=== PATIENT | female | born 1975 | race Caucasian/White ===

== ENCOUNTER 2019-06-27 09:48 | Emergency (ER) | payer OTHER, SELFPAY ==
[2019-06-27 09:55] VITALS: BP 100/96; PULSE 85; RESP 14; TEMP 37.1; O2SAT 99
[2019-06-27 10:02] VITALS: BP 121/80; PULSE 79; RESP 18; O2SAT 100
--- NOTE | 2019-06-27 10:08 | DI.RAD.S_ITS ---
PROCEDURE: XR LUMBAR SPINE 2-3V INDICATIONS: Pain TECHNIQUE: 3 views of the lumbar spine were acquired. COMPARISON: None. FINDINGS: Bones: 5 [id number] vertebrae are present. There is normal bony alignment. No vertebral body compression fractures. No suspicious bony lesions. Soft tissues: Overlying bowel gas pattern is normal. No suspicious soft tissue calcifications. Cholecystectomy clips noted. IMPRESSION: No fracture. No acute osseous lesion. If symptoms and/or clinical suspicion for pathology persists, evaluation with MRI may be helpful for further assessment. Dictated by: Ivette Strange MD, PhD on 06/27/2019 at 11:12 Approved by: Ivette Strange MD, PhD on 06/27/2019 at 11:13
--- NOTE | 2019-06-27 10:08 | DI.RAD.S_ITS ---
PROCEDURE: XR THORACIC SPINE 3V INDICATIONS: Pain TECHNIQUE: 3 views of the thoracic spine were acquired. COMPARISON: None. FINDINGS: Bones: Loss of height noted in the T12 vertebral body compatible with fracture indeterminate age. T12 compression fracture results in approximately 25% loss of normal vertebral body height. No retropulsed fragments or kyphosis associated with the T12 compression fracture. No suspicious bony lesions. 12 pairs of ribs are noted, and appear intact where visualized. Mild multilevel degenerative disc changes. Soft tissues: No paravertebral stripe thickening. IMPRESSION: T12 compression fracture indeterminate age. Dictated by: Ivette Strange MD, PhD on 06/27/2019 at 11:13 Approved by: Ivette Strange MD, PhD on 06/27/2019 at 11:14
--- NOTE | 2019-06-27 10:12 | ED_ITS ---
HPI - Back Pain/Injury General Chief Complaint: Back Pain/Injury Stated Complaint: fell on ice, back pain Time Seen by Provider: 06/27/19 10:00 Source: patient Limitations: no limitations History of Present Illness HPI Narrative: Patient is a 44-year-old female who presents with acute back pain after slipping and falling on the ice at work. She did not hit her head or lose consciousness she says she did even. She denies any numbness or tingling in her extremities loss of urine no nausea or vomiting. He complains of pain in her lower back and between her shoulders. She says it hurts every time she twists or turns. She is able to walk. Complaint: back pain Onset (ago): minute(s) Duration: constant Similar Symptoms Previously: No Location: lumbar spine and thoracic spine Severity: moderate Quality: sharp Relieving factors: immobilization Exacerbating factors: movement Related Data Previous Rx's Medication Instructions Recorded cyclobenzaprine 5 mg PO TID PRN #10 tab 06/27/19 hydrocodone-acetaminophen 1 tab PO Q6H PRN #10 tab 06/27/19 Allergies Allergy/AdvReac Type Severity Reaction Status Date / Time No Known Drug Allergies Allergy Verified 06/27/19 09:58 Review of Systems Review of Systems Narrative: GENERAL: Denies chills, fatigue, malaise, fever, sweats, travel HEENT: Denies sinus pain, ear pain, sore throat, difficulty swallowing, neck pain RESPIRATORY: Denies dyspnea, cough, wheezing, hemoptysis, sputum. CARDIOVASCULAR: Denies chest pain, palpitations, orthopnea, edema GASTROINTESTINAL: Denies nausea, vomiting, abdominal pain, diarrhea, constipation, melena. : Denies dysuria, frequency, incontinence, hematuria, urinary retention, flank pain. MUSCULOSKELETAL: see HPI SKIN: No rash, no erythema, no pruritus NEUROLOGIC: Denies weakness, dizziness, headache, numbness, change in speech, confusion PSYCHIATRIC: No concerning psychosocial issues. 12 point review of systems is negative except for those stated above and HPI Patient History Surgical History Status post cholecystectomy (Acute) Social History Smoking Status: Former smoker Smoking Status: Former smoker alcohol intake frequency: 0-2 drinks per day Substance Use Type: does not use Exam Initial Vital Signs Initial Vital Signs: Vital Signs Temperature 98.8 F 06/27/19 09:55 Pulse Rate 85 06/27/19 09:55 Respiratory Rate 14 06/27/19 09:55 Blood Pressure 100/96 H 06/27/19 09:55 Pulse Oximetry 99 06/27/19 09:55 GENERAL: Well-appearing, well-nourished and in no acute distress. HEENT: Head atraumatic,EOMI, pupils reactive NECK: No vertebral tenderness no step-offs CARDIOVASCULAR: Regular rate and rhythm without murmurs, rubs or gallops. RESPIRATORY: Breath sounds equal bilaterally, no wheezes rales or rhonchi. ABDOMEN: Soft, nontender. Normoactive bowel sounds all 4 quadrants. No guarding or rebound. BACK: No vertebral tenderness or step-offs but she is tender throughout her thoracic and lumbar spine mostly in her lumbar area and paraspinal. No sign of trauma. Able to lift both legs off gurney. EXTREMITIES: Normal range of motion, no clubbing or edema. Neurovascularly intact NEUROLOGICAL: Alert and oriented x4.Normal gait and speech. SKIN: Warm, dry, no laceration, no petechiae, no rashes or lesions. Course Orders Ordered: ED Orders 06/27/19 10:08 XR lumbar spine 2-3V Stat XR thoracic spine 3V Stat Discontinued Medications Cyclobenzaprine HCl (Flexeril) 10 mg PO NOW ONE Stop: 06/27/19 10:09 Last Admin: 06/27/19 10:18 Dose: 10 mg Documented by: MARTINEZ Ketorolac Tromethamine (Toradol) 30 mg IM NOW ONE Stop: 06/27/19 10:09 Last Admin: 06/27/19 10:17 Dose: 30 mg Documented by: MARTINEZ Vital Signs Vital signs: Vital Signs - 8 hr 06/27/19 09:55 06/27/19 10:02 06/27/19 11:29 Temperature 98.8 F Pulse Rate 85 79 70 Respiratory Rate 14 18 12 Blood Pressure 100/96 H Blood Pressure [Right Arm] 121/80 134/88 Pulse Oximetry 99 100 100 MDM - Back Pain/Injury Imaging Data Thoracic spine: Radiologist's Impression: Radiology wait T12 compression fracture indeterminate age Lumbar spine: Radiologist's Impression: No fracture. No osseous lesion. If symptoms and or clinical suspicion for pathology persists evaluation with MRI may be helpful for further assessment MDM Narrative Medical decision making narrative: Patient's pain is much better after Toradol and Flexeril. She is re-examined his she really does not have midline tenderness. Questionable new T12 compression fracture. at this time recommend follow-up and pain control. She has no focal or neurologic deficits. Discharge Plan Departure Patient Disposition: Home Clinical Impression: T12 compression fracture Qualifiers: Encounter type: initial encounter Qualified Code(s): S22.080A - Wedge compression fracture of T11-T12 vertebra, initial encounter for closed fracture Discharge Date/Time: 06/27/19 11:41 Instructions: DI for Vertebral Fracture, DI for Low Back Pain Activity Restrictions/Additional Instructions: *You have been diagnosed with T12 compression fracture *What to do: It is unclear if this is a new or old fracture. Recommend light activity no strenuous activity or heavy lifting. *Continue to take medications as directed Ibuprofen 800 mg every 8 hours if needed for [id number] pain Flexeril 5 mg every 8 hours if needed for muscle spasm this can cause sleepiness and dizziness [place] 1 tablet every 6 hours only if needed for severe pain *Follow up with your primary care provider in 2-3 days *Return to ER if you should have loss of urine weakness in legs numbness or to or any new, worsening or concerning symptoms CONTROLLED SUBSTANCE DISCHARGE (Narcotoic/benzodiazepine/Flexeril/Phenergan) 1. You have been prescribed narcotic medications, it does have acetaminophen/Tylenol/paracetamol in it so do not take extra Tylenol or Tylenol containing products TRAMADOL DOES NOT CONTAIN TYLENOL 2. Please understand that we cannot provide further refills of narcotics, benzodiazepines or controlled substances through the ED and her pain management will need to be through your provider. 3. While on these medications you cannot drive or operate heavy machinery. 4. You cannot sign legal documents or perform any duties such as this. 5. As long as you're taking opiate pain medications he should also be taking a stool softener such as Colace, Dulcolax, MiraLAX or prune juice, to help avoid constipation. Prescriptions: New hydrocodone-acetaminophen 5-325 mg tablet 1 tab PO Q6H PRN (Reason: pain) Qty: 10 RF: 0 cyclobenzaprine 5 mg tablet 5 mg PO TID PRN (Reason: muscle spasm) Qty: 10 RF: 0 Referrals: Brian Estrada DO [Non-Staff] - Stand Alone Forms: Work Release Note
[2019-06-27] MEDS: KETOROLAC 60 MG/2 ML VIAL 30 MG IM (10:17)
[2019-06-27] MEDS: CYCLOBENZAPRINE 10 MG TABLET PO (10:18)
--- NOTE | 2019-06-27 10:51 | PC.NURSE ---
No neuro deficit. CSM fully intact. NO urinary / bowel complaints. Feel directly on back, not on sacrum.
[2019-06-27 11:29] VITALS: BP 134/88; PULSE 70; RESP 12; O2SAT 100
--- NOTE | 2019-06-27 14:42 | PC.NURSE ---
Report faxed to Dr. Estrada's office @ [phone] to facilitate follow up.
== END 2019-06-27 11:41 | disposition home or self-care (01) ==
PROVIDERS: Emergency Provider Emergency Medicine
DX: S22.080A Wedge compression fracture of T11-T12 vertebra, initial encounter for closed fracture (principal); W00.0XXA Fall on same level due to ice and snow, initial encounter
CPT/HCPCS: 72072; 72100; 96372; 99283; 99284; J1885